=== PATIENT | female | born 1995 | race Caucasian/White ===

== ENCOUNTER → 2021-08-27 08:25 | Outpatient (CLI) | payer OTHER, SELFPAY ==
--- NOTE | ~2021-08-27 | US_ITS ---
EXAMINATION: US pelvic complete w TV DATE: 08/27/2021 09:10 INDICATION: Chronic pelvic pain, dyspareunia TECHNIQUE: Multiple transabdominal and endovaginal sonographic images of the pelvis were obtained. COMPARISON: None. FINDINGS: The uterus measures 8.3 x 3.8 x 4.4 cm. The endometrial complex measures 4 mm. The right ov diana measures 2.7 x 1.2 x 2.1 cm. The left ovary measures 2.6 x 1.9 x 1.9 cm. There is normal vascular flow in the ovaries. There is no free fluid in the pelvis. IMPRESSION: 1. No sonographic correlate for the patient's symptoms. Reviewed, dictated and finalized at location B.
== END ==
PROVIDERS: Visit Provider Obstetrics & Gynecology
DX: R10.2 Pelvic and perineal pain (principal)
CPT/HCPCS: 76830; 76856